=== PATIENT | male | born 1970 | race Caucasian/White ===

== ENCOUNTER 2019-12-31 14:31 | Emergency (ER) | payer MEDICARE, MEDICAID, SELFPAY ==
[2019-12-31 14:59] VITALS: BP 115/80; PULSE 91; RESP 20; TEMP 36.8; O2SAT 99; BMI 37.2
--- NOTE | 2019-12-31 15:05 | HMH.EDUTC ---
[facility] [place]ression: Exposure to COVID-19 virus, Encounter for laboratory testing for COVID-19 virus Disposition: Home, Self-Care Condition on Discharge: Good Instructions: Preventing the Spread of Coronavirus Discharge Instructions Additional Instructions: *Monitor Temp, Over the counter Motrin or Tylenol as directed/as needed Tylenol every 4 hours and Motrin every 6 hours (as long as your family doctor has told you that you can take it) for fever or pain. and straight to ER if unable to lower temp less than 101.0 after medication given *Warm salt water gargles may help to soothe the throat *Throat Lozenges *Warm fluids like tea with honey may help to soothe the throat *Sleep elevated *Humidifier/Vaporizer Follow up IMMEDIATELY for new or worsening symptoms or no Noticeable improvement over the next 48-72 hours. 911 for difficulty breathing or swallowing You was tested for today for COVID19 your test result should be back Wednesday, you may call back on Wednesday to see if your test results are back and the result You was given a handout with instructions for Self Quarantine and Self isolation for while you wait on test results and what to do if they are positive Referrals: Demian Smith MD [Primary Care Provider] - As needed Forms: Work/School Release Time of Disposition: 15:28 Medical Decision Making - Jackson Inquiry Pt receiving controlled substance: No Jackson was queried for this patient: No Vital Signs: 12/31/19 14:59 Temperature 98.2 F Temperature Source Oral Pulse Rate [Radial] 91 H Respiratory Rate 20 Blood Pressure [Right Arm] 115/80 Blood Pressure Mean [Right Arm] 91 Blood Pressure Source [Right Arm] Automatic Cuff Blood Pressure Position [Right Arm] Sitting 02 Sat by Pulse Oximetry 99 Oxygen Delivery Method Room Air Orders (Tests/Meds): ORDERS Category Date Time Status Covid-19 Nasal PCR Sendout [facility] 12/31/19 14:40 [place] [facility] [place] - General Stated complaint: exposed covid wants test Time Seen by Provider: 12/31/19 15:06 Mode of Arrival: Ambulatory Source of Information: Patient Limitations: No Limitations Description of Symptoms (Recalled from Triage Doc. by RN): covid exposure HEENT Symptoms (Recalled from RN notes): No Resp Symptoms (Recalled from RN notes): No Skin Symptoms (Recalled from RN notes): No MS Symptoms (Recalled from RN notes): No Functional Status (Recalled from RN notes): wnl - History of Present Illness Provider Complaint: Family states that patient is non verbal and was recently exposed to COVID by his mother and they was worried that he may have it and not be able to tell them if he was having symptoms so they wanted to get him tested - Related Data Allergies Allergy/AdvReac Type Severity Reaction Status Date / Time NO KNOWN ALLERGIES - NKA Allergy Unknown Uncoded 03/02/17 15:27 - Worker's Comp Is this a Worker's Comp case?: No [facility] History - Hepatitis A Screen Drug use history?: No High risk sexual behaviors?: No History of sexually transmitted infection?: No Currently employed?: No Childcare worker?: No Do you have indoor plumbing?: Yes Do you have electricity?: Yes Attestation statement:: This patient has been screened for Hepatitis A risk factors. I have reviewed the patient's past medical history: Yes - Social History Alcohol Intake: never Occupational Status: other ROS Obtained: Yes All systems reviewed & no additional complaints, Yes Systems reviewed as appropriate & no additional complaints - Constitutional Constitutional: Reports system reviewed and no additional complaints, except as docu, Denies body ache, Denies chills, Denies fever(s) - Eyes Eyes: Reports system reviewed and no additional complaints, except as docu - ENT Ears, Nose, Mouth, and Throat: Reports system reviewed and no additional complaints, except as docu - Cardiovascular Cardiovascular: Reports system reviewed and no ad
[2019-12-31 15:28] VITALS: BP 144/87; PULSE 77; RESP 19; TEMP 36.6; O2SAT 100
[2020-01-02 13:34] LABS: Covid-19 Nasal PCR Sendout Lex Positive
== END 2019-12-31 15:28 | disposition home or self-care (01) ==
PROVIDERS: Emergency Provider Nurse Practitioner; PCP Internal Medicine Adolescent Medicine
DX: U07.1 COVID-19 (principal)
CPT/HCPCS: G0463; 99201; U0004

== ENCOUNTER 2021-08-17 13:59 | Emergency (ER) | payer MEDICARE, OTHER, SELFPAY ==
[2021-08-17 14:23] VITALS: PULSE 77; RESP 16; TEMP 36.6; O2SAT 96; BMI 30.4
[2021-08-17 15:36] VITALS: BP 147/90; PULSE 61; RESP 17; TEMP 37.6; O2SAT 97; BMI 42.9
--- NOTE | 2021-08-17 15:57 | HMH.EDUTC ---
[facility] – [place] Disposition Clinical Impression: Infected laceration of lip Qualifiers: Encounter type: initial encounter Qualified Code(s): S01.511A - Laceration without foreign body of lip, initial encounter; L08.9 - Local infection of the skin and subcutaneous tissue, unspecified Disposition: Home, Self-Care Condition on Discharge: Good Instructions: DI for Mouth Pain, DI for Mouth Lesions, Amoxicillin and Clavulanic Acid Additional Instructions: Make sure to rinse mouth well with warm salt water several times daily Ice to lip may help with Swelling and pain Take antibiotics as prescribed Follow up with Dentist as soon as possible Return if needed Soft diet may help with pain in mouth and lip Straight to ER if any life threatening symptoms Prescriptions: Amoxicillin/Potassium Clav [Amox-Clav 875-125 mg Tablet] 1 tab PO BID #14 tab Transmission Status: Pending to [id number] Referrals: Demian Smith MD [Primary Care Provider] - As needed Time of Disposition: 16:07 Medical Decision Making - Jackson Inquiry Pt receiving controlled substance: No Jackson was queried for this patient: No Vital Signs: 08/17/21 14:23 08/17/21 15:36 Temperature 98 F 99.6 F Temperature Source Oral Oral Pulse Rate [Radial] 77 61 Respiratory Rate 16 17 Blood Pressure [Right Arm] 147/90 H Blood Pressure Mean [Right Arm] 109 02 Sat by Pulse Oximetry 96 97 Oxygen Delivery Method Room Air [facility] – [place] HPI - General Stated complaint: AO fall 6/ lip lac Time Seen by Provider: 08/17/21 15:57 Source of Information: Patient Description of Symptoms (Recalled from Triage Doc. by RN): caregiver brings patient in for a cut on the bottom lip that happened yesterday. HEENT Symptoms (Recalled from RN notes): Yes Resp Symptoms (Recalled from RN notes): No Skin Symptoms (Recalled from RN notes): No MS Symptoms (Recalled from RN notes): No Functional Status (Recalled from RN notes): wnl - History of Present Illness Provider Complaint: Caregiver states that patient stumbles when he walks and was at home yesterday when he tripped and fell and hit the blacktop States that he had a plate in his upper front teeth and knocked it out and busted his lip States that they didnt bring him in yesterday because he wouldnt come but today they noticed it looked like his lip maybe getting infected on the inside so she brought him in until they could get him to his dentist Denies any other injury denies LOC - Related Data Previous Rx's Medication Instructions Recorded Amoxicillin/Potassium Clav 1 tab PO BID #14 tab 08/17/21 [Amox-Clav 875-125 mg Tablet] Allergies Allergy/AdvReac Type Severity Reaction Status Date / Time NO KNOWN ALLERGIES - NKA Allergy Unknown Uncoded 03/02/17 15:27 - Worker's Comp Is this a Worker's Comp case?: No [facility] History - Hepatitis A Screen Attestation statement:: This patient has been screened for Hepatitis A risk factors. I have reviewed the patient's past medical history: Yes - Social History Alcohol Intake: never Occupational Status: other ROS Obtained: Yes All systems reviewed & no additional complaints, Yes Systems reviewed as appropriate & no additional complaints - Constitutional Constitutional: Reports system reviewed and no additional complaints, except as docu, Denies body ache, Denies chills, Denies fever(s) - ENT Ears, Nose, Mouth, and Throat: Reports system reviewed and no additional complaints, except as docu, Reports lip swelling (with laceration on inside of bottom lip) - Cardiovascular Cardiovascular: Reports system reviewed and no additional complaints, except as docu - Respiratory Respiratory: Reports system reviewed and no additional complaints, except as docu - Gastrointestinal Gastrointestingal: Reports: system reviewed and no additional complaints, except as docu Physical Exam - General General appearance: alert, in no apparent distress - Expanded ENT Exam Nose exam
[2021-08-17 16:22] VITALS: BP 147/90; PULSE 61; RESP 17; TEMP 37.6
== END 2021-08-17 16:32 | disposition home or self-care (01) ==
PROVIDERS: Emergency Provider Nurse Practitioner; PCP Internal Medicine Adolescent Medicine
DX: S01.511A Laceration without foreign body of lip, initial encounter (principal); W01.0XXA Fall on same level from slipping, tripping and stumbling without subsequent striking against object, initial encounter
CPT/HCPCS: 99212; G0463